=== PATIENT | female | born 1940 | race Caucasian/White ===

== ENCOUNTER 2016-11-23 16:00 | Inpatient (IN) | payer OTHER ==
[~2016-11-23] VITALS: Ht 157.5 cm; Wt 62.6 kg
[2016-11-24] MEDS ORDERED: PNEUMO VAC 25 MCG/0.5 ML VL IM.VACC ONE ×2 (10:25→12:20)
[2016-11-24 14:09] VITALS: BP_SYST 118; RESP 16; TEMP 98.2
[2016-11-24] MEDS: FERROUS SULF 325 MG TAB PO SCH ×2 (14:58→20:22)
[2016-11-24] MEDS: ENOXAPARIN 30 MG/0.3 ML SYR SUBQ SCH (14:58)
[2016-11-24] MEDS: MULTIVITS/MINERALS (THERAGRAN M) TAB PO SCH (14:59)
[2016-11-24] MEDS: METOPROLOL XL 25 MG TAB PO SCH (14:59)
[2016-11-24 16:20] VITALS: BP_SYST 110; RESP 16; TEMP 98.2
[2016-11-24] MEDS: OXYCODONE/APAP 7.5/325 TAB PO PRN (20:23)
[2016-11-24] MEDS ORDERED: TUBERCULIN PPD 5 UNIT SYR ID.VACC ONE ×2 (21:00)
[2016-11-25 06:08] VITALS: BP_SYST 124; TEMP 98.5
[2016-11-25] MEDS: MULTIVITS/MINERALS (THERAGRAN M) TAB PO SCH (08:35)
[2016-11-25] MEDS: METOPROLOL XL 25 MG TAB PO SCH (08:35)
[2016-11-25] MEDS: FERROUS SULF 325 MG TAB PO SCH ×2 (08:35→20:52)
[2016-11-25] MEDS: ENOXAPARIN 30 MG/0.3 ML SYR SUBQ SCH (08:36)
[2016-11-25 11:49] VITALS: BP_SYST 116; RESP 16; TEMP 98.5
[2016-11-25] MEDS: OXYCODONE/APAP 7.5/325 TAB PO PRN (15:23)
[2016-11-25 16:17] VITALS: BP_SYST 105; RESP 16; TEMP 98.4
[2016-11-26 00:54] VITALS: BP_SYST 115; RESP 18; TEMP 98.8
[2016-11-26] MEDS: FERROUS SULF 325 MG TAB PO SCH ×2 (08:47→20:29)
[2016-11-26] MEDS: MULTIVITS/MINERALS (THERAGRAN M) TAB PO SCH (08:47)
[2016-11-26] MEDS: METOPROLOL XL 25 MG TAB PO SCH (08:47)
[2016-11-26] MEDS: ENOXAPARIN 30 MG/0.3 ML SYR SUBQ SCH (08:48)
[2016-11-26] MEDS: OXYCODONE/APAP 7.5/325 TAB PO PRN (10:28)
[2016-11-26 13:06] VITALS: BP_SYST 107; RESP 16; TEMP 98
[2016-11-26 17:18] VITALS: BP_SYST 103; RESP 18; TEMP 97.9
[2016-11-26] MEDS ORDERED: SKIN TEST: READ AND RECORD XX SCH ×2 (21:00)
[2016-11-27 01:53] VITALS: BP_SYST 103; RESP 18; TEMP 99
[2016-11-27 01:54] VITALS: TEMP 99
[2016-11-27] MEDS: FERROUS SULF 325 MG TAB PO SCH ×2 (09:07→20:11)
[2016-11-27] MEDS: METOPROLOL XL 25 MG TAB PO SCH (09:08)
[2016-11-27] MEDS: OXYCODONE/APAP 7.5/325 TAB PO PRN ×2 (09:08→21:17)
[2016-11-27] MEDS: MULTIVITS/MINERALS (THERAGRAN M) TAB PO SCH (09:08)
[2016-11-27] MEDS: ENOXAPARIN 30 MG/0.3 ML SYR SUBQ SCH (09:09)
[2016-11-27 09:24] VITALS: BP_SYST 117; RESP 20; TEMP 98.7
[2016-11-27 09:33] VITALS: Ht 157.5 cm; Wt 62.6 kg
[2016-11-27 16:00] VITALS: BP_SYST 87; RESP 18; TEMP 98
[2016-11-28 01:46] VITALS: BP_SYST 108; RESP 18; TEMP 98.4
[2016-11-28] MEDS: FERROUS SULF 325 MG TAB PO SCH ×2 (09:11→20:14)
[2016-11-28] MEDS: MULTIVITS/MINERALS (THERAGRAN M) TAB PO SCH (09:11)
[2016-11-28] MEDS: METOPROLOL XL 25 MG TAB PO SCH (09:11)
[2016-11-28] MEDS: ENOXAPARIN 30 MG/0.3 ML SYR SUBQ SCH (09:12)
[2016-11-28 09:56] VITALS: TEMP 98
[2016-11-28 09:57] VITALS: BP_SYST 110
[2016-11-28 09:58] VITALS: RESP 20
[2016-11-28] MEDS: OXYCODONE/APAP 7.5/325 TAB PO PRN ×2 (12:10→21:14)
[2016-11-28 20:58] VITALS: BP_SYST 100; RESP 18; TEMP 98.8
[2016-11-29] MEDS: OXYCODONE/APAP 7.5/325 TAB PO PRN (07:40)
[2016-11-29] MEDS: METOPROLOL XL 25 MG TAB PO SCH (08:24)
[2016-11-29] MEDS: MULTIVITS/MINERALS (THERAGRAN M) TAB PO SCH (08:24)
[2016-11-29] MEDS: FERROUS SULF 325 MG TAB PO SCH ×2 (08:24→20:48)
[2016-11-29] MEDS: ENOXAPARIN 30 MG/0.3 ML SYR SUBQ SCH (08:27)
[2016-11-29 10:29] VITALS: BP_SYST 92; RESP 16; TEMP 97.9
[2016-11-29 16:09] VITALS: BP_SYST 107; RESP 18; TEMP 98.1
[2016-11-30 00:49] VITALS: BP_SYST 105; RESP 18; TEMP 98.8
[2016-11-30] MEDS: OXYCODONE/APAP 7.5/325 TAB PO PRN ×2 (03:55→09:59)
[2016-11-30] MEDS: METOPROLOL XL 25 MG TAB PO SCH (08:39)
[2016-11-30] MEDS: FERROUS SULF 325 MG TAB PO SCH (08:39)
[2016-11-30] MEDS: MULTIVITS/MINERALS (THERAGRAN M) TAB PO SCH (08:39)
[2016-11-30] MEDS: ENOXAPARIN 30 MG/0.3 ML SYR SUBQ SCH (08:39)
[2016-11-30 09:10] VITALS: BP_SYST 105; RESP 18; TEMP 98.8
[2016-11-30 10:05] VITALS: BP_SYST 103
[2016-12-01] MEDS ORDERED: TUBERCULIN PPD 5 UNIT SYR ID.VACC ONE ×2 (21:00)
== END 2016-11-30 14:41 | disposition home health service (06) | DRG 560 ==
LOC: NF 11-24 13:20 → ENPENDDIS 11-24 13:20
PROVIDERS: ADMIT Family Medicine; ATTEND Family Medicine
CPT/HCPCS: 36415; 80048; 82565; 85025; 86580; 99316